=== PATIENT | female | born 1980 | race Caucasian/White ===

== ENCOUNTER → 2018-02-20 | Outpatient (CLI) | payer BC ==
[2018-02-20 15:54] LABS: TRANSFERRIN 263 mg/dl (200-360)
[2018-02-26 22:26] LABS: ANA SCREEN TC 249X POSITIVE (NEGATIVE); ANTI-SS-A <1.0 NEG AI (<1.0 NEG); ANTI-SS-B <1.0 NEG AI (<1.0 NEG); COMPLEMENT C3 TC 44859W 126 MG/DL (90-180); COMPLEMENT C4 TC 44982E 24 MG/DL (16-47); PARVOVIRUS IgM INDEX 0.1 (<0.9)
== END | disposition home or self-care (01) ==
LOC: C.LAB1850 14:22
PROVIDERS: ATTEND Internal Medicine Rheumatology
DX: M25.562 Pain in left knee (principal); M79.89 Other specified soft tissue disorders; R20.1 Hypoesthesia of skin; R23.1 Pallor